=== PATIENT | male | born 1940 | race Caucasian/White ===

== ENCOUNTER 2018-05-20 15:10 | Emergency (ER) | payer OTHER ==
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
[2018-05-20 16:08] VITALS: BP 175/90; PULSE 105; TEMP 97.9; BMI 22.3
== END 2018-05-20 16:14 | disposition home or self-care (01) ==
LOC: FER 15:10
DX: Z04.1 Encounter for examination and observation following transport accident (principal); V43.62XA Car passenger injured in collision with other type car in traffic accident, initial encounter; Y93.89 Activity, other specified; Y92.410 Unspecified street and highway as the place of occurrence of the external cause; F79 Unspecified intellectual disabilities; I10 Essential (primary) hypertension; F25.9 Schizoaffective disorder, unspecified; F84.0 Autistic disorder; F41.9 Anxiety disorder, unspecified; E78.5 Hyperlipidemia, unspecified; E05.90 Thyrotoxicosis, unspecified without thyrotoxic crisis or storm
CPT/HCPCS: 99281-25